=== PATIENT | female | born 1995 | race Caucasian/White ===

== ENCOUNTER 2016-08-02 15:21 | Emergency (ER) | payer OTHER, MEDICAID ==
[2016-08-02 15:40] VITALS: BP 131/73
--- NOTE | 2016-08-02 16:01 | UC ---
Knee Pain HPI - HPI Summary HPI Summary: RIGHT KNEE AND RIGHT MID THIGH PAIN X 1 DAY , NO KNOWN INJURY , + TIGHTNESS INCREASE PAIN WITH WALKING , BETTER WITH REST. - History of Current Complaint Chief Complaint: UCLowerExtremity Stated Complaint: RIGHT KNEE PAIN Time Seen by Provider: 08/02/16 15:41 Hx Obtained From: Patient Hx Last Menstrual Period: prior to childbirth. Nexplanon placed last week. ?: No Onset/Duration: Gradual Onset, Lasting Days - 1, Still Present Severity Initially: Mild Severity Currently: Mild Character: Aching Aggravating Factor(s): Movement, Weight Bearing Alleviating Factor(s): Rest Associated Signs And Symptoms: Negative: Swelling, Redness, Bruising, Fever, Weakness, Numbness, Tingling Able to Bear Weight: Yes - Allergies/Home Medications Allergies/Adverse Reactions: Allergies Allergy/AdvReac Type Severity Reaction Status Date / Time No Known Allergies Allergy Verified 08/02/16 15:34 Home Medications: Home Medications Etonogestrel IMPLANT(NF) [Implanon (NF)] 68 mg IMPLANT ONCE 08/02/16 [History Confirmed 08/02/16] PMH/Surg Hx/FS Hx/Imm Hx Endocrine History Of: Denies: Diabetes, Thyroid Disease, Hyperthyroidism, Hypothyroidism, Dyslipidemia Cardiovascular History Of: Denies: Cardiac Disorders, Hypertension, Pacemaker/ICD, Myocardial Infarction , Congestive Heart Failure, Atrial Fibrillation, Deep Vein Thrombosis, Bleeding Disorders Respiratory History Of: Denies: COPD, Asthma, Bronchitis, Pneumonia, Pulmonary Embolism GI/ History Of: Denies: Gastroesophageal Reflux, Ulcer, Gastrointestinal Bleed, Gall Bladder Disease, Kidney Stones, Diverticulitis, Renal Disease, Urosepsis Neurological History Of: Denies: TIA, CVA, Dementia, Seizures, Migraine Psychological History Of: Denies: Anxiety, Depression, Bipolar Disorder, Schizophrenia, Post Traumatic Stress Disorder Cancer History Of: Denies: Lung Cancer, Colorectal Cancer, Breast Cancer, Prostate Cancer, Cervical Cancer Other History Of: Negative For: HIV, Hepatitis B, Hepatitis C, Anticoagulant Therapy - Surgical History Surgical History: Yes Surgery Procedure, Year, and Place: tongue tied / released as infant, T & A, tubes in ears. - Family History Known Family History: Positive: None Negative: Diabetes - Social History Alcohol Use: None Substance Use Type: None Smoking Status (MU): Never Smoked Tobacco Have You Smoked in the Last Year: No Review of Systems Constitutional: Negative Skin: Negative Eyes: Negative ENT: Negative Respiratory: Negative Cardiovascular: Negative All Other Systems Reviewed And Are Negative: Yes Physical Exam Triage Information Reviewed: Yes Appearance: Well-Appearing, No Pain Distress, Obese Vital Signs: Initial Vital Signs Temp 99 F 08/02/16 15:35 Pulse 94 08/02/16 15:35 Resp 16 08/02/16 15:35 BP 131/73 08/02/16 15:35 Pulse Ox 99 08/02/16 15:35 Vital Signs Reviewed: Yes Eyes: Positive: Conjunctiva Clear ENT: Positive: Normal ENT inspection, Hearing grossly normal, Pharynx normal Neck exam: Normal Neck: Positive: Supple, Nontender, No Lymphadenopathy Respiratory Exam: Normal Respiratory: Positive: Chest non-tender, Lungs clear, Normal breath sounds Cardiovascular: Positive: RRR, No Murmur, Pulses Normal Abdominal Exam: Normal Abdomen Description: Positive: Nontender, Soft Musculoskeletal Exam: Normal Musculoskeletal: Positive: Strength Intact, ROM Intact, Other: - RIGHT KNEE: NO SWELLING , NO TENDERNESS, GOOD ROM RIGHT LOWER LEG: NO CALF TENDERNESS, NO ERYTHEM RIGHT THIGH: NO TENDERENSS, NO SWELLING Skin Exam: Normal Knee Pain Course/Dx - Differential Dx/Diagnosis Provider Diagnoses: RIGHT KNEE PAIN Discharge - Discharge Plan Condition: Stable Disposition: HOME Patient Education Materials: Knee Pain (ED) Referrals: KEVIN Mendoza [Primary Care Provider] - If Needed Additional Instructions: LEFT KNEE / LEG STRAIN CONT. WITH REST, ICE, TYLENOL NEEDED FOR PAIN FOLLOW UP IN 5 DAYS IF NOT BETTER, SOONER IF GETTING WORSE
== END 2016-08-02 15:53 | disposition home or self-care (01) ==
LOC: UCCORT 15:21
DX: M25.561 Pain in right knee (principal); E66.9 Obesity, unspecified
CPT/HCPCS: 99211; G0463

== ENCOUNTER 2016-08-19 18:23 | Emergency (ER) | payer OTHER, MEDICAID ==
[2016-08-19 20:29] VITALS: BP 122/77
--- NOTE | 2016-08-19 20:43 | UC ---
Back Pain HPI - HPI Summary HPI Summary: com plaint of lower bcak pain for the last 3 days only painful when she is sitting down or when she is getting out of bed non radiating pain hasn't taken any medication for pain denies fever denies incontinence denies dysuria ,increased frequency or urgency currently having menses with some cramping when she moves her left arm her muscle is sore - History of Current Complaint Chief Complaint: UCBackPain Stated Complaint: BACK PAIN Time Seen by Provider: 08/19/16 20:36 Hx Last Menstrual Period: 08/08/16 Onset/Duration: Gradual Onset, Lasting Days, Still Present Timing: Intermittent, Lasting Minutes Severity Initially: Mild Severity Currently: Mild Back Pain: Is Diffuse Character: Aching Aggravating: Movement Alleviating: Position - Allergies/Home Medications Allergies/Adverse Reactions: Allergies Allergy/AdvReac Type Severity Reaction Status Date / Time No Known Allergies Allergy Verified 08/19/16 20:23 Home Medications: Home Medications Ibuprofen [Midol] 400 mg PO PRN 08/19/16 [History] PMH/Surg Hx/FS Hx/Imm Hx Previously Healthy: Yes Endocrine History Of: Denies: Diabetes, Thyroid Disease, Hyperthyroidism, Hypothyroidism, Dyslipidemia Cardiovascular History Of: Denies: Cardiac Disorders, Hypertension, Pacemaker/ICD, Myocardial Infarction , Congestive Heart Failure, Atrial Fibrillation, Deep Vein Thrombosis, Bleeding Disorders Respiratory History Of: Denies: COPD, Asthma, Bronchitis, Pneumonia, Pulmonary Embolism GI/ History Of: Denies: Gastroesophageal Reflux, Ulcer, Gastrointestinal Bleed, Gall Bladder Disease, Kidney Stones, Diverticulitis, Renal Disease, Urosepsis Neurological History Of: Denies: TIA, CVA, Dementia, Seizures, Migraine Psychological History Of: Denies: Anxiety, Depression, Bipolar Disorder, Schizophrenia, Post Traumatic Stress Disorder Cancer History Of: Denies: Lung Cancer, Colorectal Cancer, Breast Cancer, Prostate Cancer, Cervical Cancer Other History Of: Negative For: HIV, Hepatitis B, Hepatitis C, Anticoagulant Therapy - Surgical History Surgical History: Yes Surgery Procedure, Year, and Place: tongue tied / released as infant, T & A, tubes in ears. - Family History Known Family History: Positive: None Negative: Cardiac Disease, Hypertension, Diabetes - Social History Lives: With Family Alcohol Use: None Substance Use Type: None Smoking Status (MU): Never Smoked Tobacco Have You Smoked in the Last Year: No Review of Systems Constitutional: Negative Skin: Negative Eyes: Negative ENT: Negative Respiratory: Negative Cardiovascular: Negative Gastrointestinal: Negative Genitourinary: Negative Motor: Negative Neurovascular: Negative Musculoskeletal: Other: - lower bcak pain left arm pain Neurological: Negative Psychological: Negative All Other Systems Reviewed And Are Negative: Yes Physical Exam Triage Information Reviewed: Yes Appearance: No Pain Distress, Well-Nourished, Obese Vital Signs: Initial Vital Signs Temp 98 F 08/19/16 20:24 Pulse 69 08/19/16 20:24 Resp 18 08/19/16 20:24 BP 122/77 08/19/16 20:24 Pulse Ox 99 08/19/16 20:24 Vital Signs Reviewed: Yes Eyes: Positive: Conjunctiva Clear ENT: Positive: Normal ENT inspection Neck: Positive: No Lymphadenopathy Respiratory: Positive: Lungs clear, Normal breath sounds, No respiratory distress Cardiovascular: Positive: RRR, No Murmur, Pulses Normal Abdomen Description: Positive: Nontender, Soft Bowel Sounds: Positive: Present Musculoskeletal: Positive: Other: - spine non- tender to percussion paraspinal lumbar tenderness left side Neurological: Positive: Alert, Other: - patellar reflexes intact negative SLR Psychological Exam: Normal Skin Exam: Normal Back Pain Course/Dx - Course Course Of Treatment: exam completed. no red flags for imaging. will treat with muscle relaxer NSAIDS and PT - Differential Dx/Diagnosis Differential Diagnosis/HQI/PQRI: Herniated Disc, Strain, Sprain Provider Diagnoses: lower back pain Discharge - Discharge Plan Condition: Stable Disposition: HOME Prescriptions: Cyclobenzaprine TAB* [Flexeril TAB*] 10 mg PO BEDTIME #10 tab Ibuprofen TAB* [Motrin TAB* 800 MG] 800 mg PO Q8H #30 tab Patient Education Materials: Low Back Strain (ED) Referrals: KEVIN Mendoza [Primary Care Provider] - Additional Instructions: Take flexeril as directed. Do not drink, drive or operate heavy machinery while on flexeril. Take acetaminophen or ibuprofen for fever or pain. Please call physical therapist for further evaluation and treatment of your lower back pain. Increase fluids and rest. Please review your discharge instructions. If your symptoms do not improve please call your primary care provider or return to urgent care.
[2016-08-19] MEDS ORDERED: Cyclobenzaprine TAB* 10 MG PO ONE (20:50)
== END 2016-08-19 21:18 | disposition home or self-care (01) ==
LOC: UCCORT 18:23
DX: M54.5 Low back pain (principal); M79.602 Pain in left arm; E66.9 Obesity, unspecified
CPT/HCPCS: 99212; A9270-GY; G0463

== ENCOUNTER 2016-09-01 10:41 | Emergency (ER) | payer MEDICAID, OTHER ==
[2016-09-01 11:41] VITALS: BP 128/66
[2016-09-01] MEDS ORDERED: Ibuprofen TAB* 600 MG PO ONE (11:59)
--- NOTE | 2016-09-01 12:01 | UC ---
Knee Pain HPI - HPI Summary HPI Summary: 21 yo female with left knee pain which started about 4 AM she thinks this is due to twisting knee 2 days ago no locking or buckling - History of Current Complaint Chief Complaint: UCLowerExtremity Stated Complaint: LEFT KNEE PAIN Time Seen by Provider: 09/01/16 11:48 Hx Obtained From: Patient Hx Last Menstrual Period: 08/10/16 Onset/Duration: Gradual Onset, Lasting Hours Severity Initially: Mild Severity Currently: Moderate Location Of Injury: left knee Pain Intensity: 6 Character: Dull, Aching Aggravating Factor(s): Weight Bearing Alleviating Factor(s): Rest Associated Signs And Symptoms: Positive: Negative Able to Bear Weight: Yes - Allergies/Home Medications Allergies/Adverse Reactions: Allergies Allergy/AdvReac Type Severity Reaction Status Date / Time No Known Allergies Allergy Verified 09/01/16 11:36 Home Medications: Home Medications Nexplanon (Etonogestrol) Implant 68 mg .ROUTE ONCE 09/01/16 [History] PMH/Surg Hx/FS Hx/Imm Hx Previously Healthy: Yes Endocrine History Of: Denies: Diabetes, Thyroid Disease, Hyperthyroidism, Hypothyroidism, Dyslipidemia Cardiovascular History Of: Denies: Cardiac Disorders, Hypertension, Pacemaker/ICD, Myocardial Infarction , Congestive Heart Failure, Atrial Fibrillation, Deep Vein Thrombosis, Bleeding Disorders Respiratory History Of: Denies: COPD, Asthma, Bronchitis, Pneumonia, Pulmonary Embolism GI/ History Of: Denies: Gastroesophageal Reflux, Ulcer, Gastrointestinal Bleed, Gall Bladder Disease, Kidney Stones, Diverticulitis, Renal Disease, Urosepsis Neurological History Of: Denies: TIA, CVA, Dementia, Seizures, Migraine Psychological History Of: Denies: Anxiety, Depression, Bipolar Disorder, Schizophrenia, Post Traumatic Stress Disorder Cancer History Of: Denies: Lung Cancer, Colorectal Cancer, Breast Cancer, Prostate Cancer, Cervical Cancer Other History Of: Negative For: HIV, Hepatitis B, Hepatitis C, Anticoagulant Therapy - Surgical History Surgical History: Yes Surgery Procedure, Year, and Place: tongue tied / released as infant, T & A, tubes in ears. - Family History Known Family History: Positive: Hypertension Negative: Cardiac Disease, Diabetes - Social History Alcohol Use: Rare Substance Use Type: None Smoking Status (MU): Never Smoked Tobacco Have You Smoked in the Last Year: No - Immunization History Most Recent Influenza Vaccination: Not the 2016/2016 Season Review of Systems Constitutional: Negative Skin: Negative Eyes: Negative ENT: Negative Respiratory: Negative Cardiovascular: Negative Gastrointestinal: Negative Genitourinary: Negative Motor: Negative Neurovascular: Negative Musculoskeletal: Arthralgia Neurological: Negative Psychological: Negative All Other Systems Reviewed And Are Negative: Yes Physical Exam Triage Information Reviewed: Yes Appearance: Well-Appearing, No Pain Distress, Well-Nourished Vital Signs: Initial Vital Signs Temp 98.6 F 09/01/16 11:33 Pulse 84 09/01/16 11:33 Resp 16 09/01/16 11:33 BP 128/66 09/01/16 11:33 Pulse Ox 99 09/01/16 11:33 Vital Signs Reviewed: Yes Eyes: Positive: Conjunctiva Clear ENT: Positive: Hearing grossly normal. Negative: Nasal congestion, Nasal drainage, Trismus, Muffled/hoarse voice Neck: Positive: Supple, Nontender, No Lymphadenopathy Respiratory: Positive: Lungs clear, Normal breath sounds, No respiratory distress Cardiovascular: Positive: RRR, No Murmur, Pulses Normal Abdomen Description: Positive: No Organomegaly. Negative: CVA Tenderness (R), CVA Tenderness (L), Distended, Guarding, Hernia @, Hepatomegaly, McBurney's Point Tenderness, Peritoneal Signs, Pulsatile Mass, Splenomegaly Musculoskeletal: Positive: ROM Intact, No Edema Neurological: Positive: Alert Psychological Exam: Normal Skin Exam: Normal Knee Pain Course/Dx - Differential Dx/Diagnosis Provider Diagnoses: left knee pain (? sprain vs patellar femoral syndrome) Discharge - Discharge Plan Condition: Stable Disposition: HOME Prescriptions: Ibuprofen TAB* [Motrin TAB*] 600 mg PO QID #40 tab Patient Education Materials: Knee Sprain (ED) Referrals: KEVIN Isidro [Primary Care Provider] - 1 Week Additional Instructions: rest ice
== END 2016-09-01 12:11 | disposition home or self-care (01) ==
LOC: UCCORT 10:41
DX: M25.562 Pain in left knee (principal)
CPT/HCPCS: 99213; A9270-GY; G0463

== ENCOUNTER 2017-04-12 20:31 | Emergency (ER) | payer OTHER ==
[2017-04-12 21:14] VITALS: BP 126/67
[2017-04-12] MEDS ORDERED: Famotidine TAB* 20 MG PO ONE (22:06)
--- NOTE | 2017-04-12 22:14 | UC ---
Abdominal Pain Female HPI - HPI Summary HPI Summary: 21 yo female with one week hx of intermittent abd pain epigastric dull and non radiating goes away immediately with food some nausea no vomiting no f/c no diarrhea no UTI symptoms hx c-s - History of Current Complaint Chief Complaint: UCAbdominalPain Stated Complaint: STOMACH CRAMPING Time Seen by Provider: 04/12/17 21:47 Hx Obtained From: Patient Hx Last Menstrual Period: 03/09/17 Onset/Duration: Gradual Onset, Lasting Days Timing: Intermittent Episodes Lasting: - variable Severity Initially: Mild Severity Currently: Mild Pain Intensity: 3 Pain Scale Used: 0-10 Numeric Location: Epigastric Radiates: No Character: Dull Aggravating Factor(s): Nothing Alleviating Factor(s): Other: - food Associated Signs and Symptoms: Positive: Nausea Allergies/Adverse Reactions: Allergies Allergy/AdvReac Type Severity Reaction Status Date / Time No Known Allergies Allergy Verified 04/12/17 21:14 Home Medications: Home Medications Norethindrone Acet & Eth Estra [Loestrin 1.5/30-21 1.5-30 mg-Mcg] 1 tab PO DAILY 04/12/17 [History Confirmed 04/12/17] PMH/Surg Hx/FS Hx/Imm Hx Previously Healthy: Yes Other History Of: Negative For: HIV, Hepatitis B, Hepatitis C, Anticoagulant Therapy - Surgical History Surgical History: Yes Surgery Procedure, Year, and Place: tongue tied / released as infant, T & A, tubes in ears. - Family History Known Family History: Positive: Hypertension Negative: Cardiac Disease, Diabetes - Social History Alcohol Use: Rare Substance Use Type: None Smoking Status (MU): Never Smoked Tobacco Have You Smoked in the Last Year: No - Immunization History Most Recent Influenza Vaccination: Not the Season Review of Systems Constitutional: Negative Skin: Negative Eyes: Negative ENT: Negative Respiratory: Negative Cardiovascular: Negative Gastrointestinal: Abdominal Pain, Nausea Genitourinary: Negative Motor: Negative Neurovascular: Negative Musculoskeletal: Negative Neurological: Negative Psychological: Negative Is Patient Immunocompromised?: No All Other Systems Reviewed And Are Negative: Yes Physical Exam Triage Information Reviewed: Yes Appearance: Well-Appearing, No Pain Distress, Well-Nourished Vital Signs: Initial Vital Signs Temp 98.8 F 04/12/17 21:09 Pulse 85 04/12/17 21:09 Resp 16 04/12/17 21:09 BP 126/67 04/12/17 21:09 Pulse Ox 98 04/12/17 21:09 Vital Signs Reviewed: Yes Eyes: Positive: Conjunctiva Clear ENT: Positive: Normal ENT inspection, Pharynx normal, Nasal drainage, TMs normal. Negative: Nasal congestion, Tonsillar exudate, Trismus, Muffled/hoarse voice Neck: Positive: Supple, Nontender, No Lymphadenopathy Respiratory: Positive: Lungs clear, Normal breath sounds, No respiratory distress, No accessory muscle use Cardiovascular: Positive: RRR, No Murmur, Pulses Normal Abdomen Description: Positive: Soft. Negative: Nontender - mid epigastric tenderness Bowel Sounds: Positive: Present Musculoskeletal: Positive: ROM Intact, No Edema Neurological: Positive: Alert Psychological Exam: Normal Skin Exam: Normal Abd Pain Female Course/Dx - Differential Dx/Diagnosis Differential Diagnosis: Gall Bladder Disease, Irritable Bowel Syndrome, Other - PUD Provider Diagnoses: epigastric abd pain of uncertain cause Discharge - Discharge Plan Condition: Stable Disposition: HOME Prescriptions: Famotidine TAB* [Pepcid 20 MG TAB*] 20 mg PO DAILY #14 tab Patient Education Materials: Acute Abdominal Pain (ED) Referrals: KEVIN Isidro [Primary Care Provider] - 4 Days Additional Instructions: possible ulcer try 6 small meals a day take pepcid as directed you may want to take mylanta : 2 tablespoons every 2 hours while awake for 2-3 days I suggest you recheck with your provider later this week for further evaluation
== END 2017-04-12 22:20 | disposition home or self-care (01) ==
LOC: UCCORT 20:31
DX: R10.13 Epigastric pain (principal); R11.0 Nausea; Z32.02 Encounter for pregnancy test, result negative
CPT/HCPCS: 81003; 84702; 99212; A9270-GY; G0463

== ENCOUNTER 2017-05-25 19:51 | Emergency (ER) | payer OTHER ==
[2017-05-25 20:46] VITALS: BP 136/65
--- NOTE | 2017-06-02 09:48 | UC ---
Throat Pain/Nasal Erwin HPI - History of Current Complaint Chief Complaint: UCGeneralIllness Stated Complaint: COUGH/SORE THROAT Time Seen by Provider: 05/25/17 21:04 Hx Obtained From: Patient Hx Last Menstrual Period: 04/14/17 Onset/Duration: Sudden Onset Severity: Moderate Pain Intensity: 8 Pain Scale Used: 0-10 Numeric Cough: Nonproductive Associated Signs & Symptoms: Positive: Negative - Allergies/Home Medications Allergies/Adverse Reactions: Allergies Allergy/AdvReac Type Severity Reaction Status Date / Time Adhesive Tape Allergy Rash Verified 05/25/17 20:46 PMH/Surg Hx/FS Hx/Imm Hx Previously Healthy: Yes Other History Of: Negative For: HIV, Hepatitis B, Hepatitis C, Anticoagulant Therapy - Surgical History Surgical History: Yes Surgery Procedure, Year, and Place: tongue tied / released as infant, T & A, tubes in ears. - Family History Known Family History: Positive: Hypertension Negative: Cardiac Disease, Diabetes - Social History Alcohol Use: Rare Substance Use Type: None Smoking Status (MU): Never Smoked Tobacco Have You Smoked in the Last Year: No - Immunization History Most Recent Influenza Vaccination: Not the Season Review of Systems Constitutional: Negative Skin: Negative Eyes: Negative ENT: Nasal Discharge, Sinus Congestion, Sinus Pain/Tenderness Respiratory: Negative Cardiovascular: Negative Gastrointestinal: Negative Genitourinary: Negative Motor: Negative Neurovascular: Negative Musculoskeletal: Negative Neurological: Negative Psychological: Negative All Other Systems Reviewed And Are Negative: Yes Physical Exam Triage Information Reviewed: Yes Vital Signs: Initial Vital Signs Temp 37.5 C 05/25/17 20:38 Pulse 114 05/25/17 20:38 Resp 28 05/25/17 20:38 BP 136/65 05/25/17 20:38 Pulse Ox 100 05/25/17 20:38 Vital Signs Reviewed: Yes Eye Exam: Normal ENT: Positive: Pharyngeal erythema, Nasal congestion, Nasal drainage, Sinus tenderness Dental Exam: Normal Neck exam: Normal Neck: Positive: 1 Respiratory Exam: Normal Cardiovascular Exam: Normal Abdominal Exam: Normal Musculoskeletal Exam: Normal Neurological Exam: Normal Psychological Exam: Normal Skin Exam: Normal Throat Pain/Nasal Course/Dx - Differential Dx/Diagnosis Provider Diagnoses: sinusitis Discharge - Discharge Plan Condition: Stable Disposition: HOME Prescriptions: Amoxicillin/Clavulanate TAB* [Augmentin TAB 875*] 875 mg PO BID #20 tab Fluticasone NASAL * [Flonase *] 2 spray BOTH NARES DAILY #1 box LoraTADine TAB(NF) [Claritin 10 MG TAB(NF)] 10 mg PO DAILY #30 tab Patient Education Materials: Sinusitis (ED) Referrals: KEVIN Isidro [Primary Care Provider] -
== END 2017-05-25 21:31 | disposition home or self-care (01) ==
LOC: UCCORT 19:51
DX: J32.9 Chronic sinusitis, unspecified (principal); Z32.02 Encounter for pregnancy test, result negative
CPT/HCPCS: 84702; 87651; 99212; G0463

== ENCOUNTER 2020-09-05 06:14 | Inpatient (IN) ==
[~2020-09-05 06:14] MED LIST: Buffered Lidocaine 1% SYRIN 1 ml INTRADERM ONE; Lactated Ringers 1000 ml BAG 1,000 ML IV SCH; Sodium Citrate/Citric Acid LIQ 15 ML UDC PO ONE
[2020-09-05 06:49] LABS: Platelet Count 196 10^3/ul (150-450)
[2020-09-05 07:00] LABS: Fibrinogen 619.9 mg/dL (110.8-404.3)
[2020-09-05] MEDS ORDERED: ceFOXitin 2 GM PREMIX 50 ML IVPB ONE (07:00)
[2020-09-05 07:12] LABS: Schistocytes ABSENT
[2020-09-05] MEDS ORDERED: Morphine PF AMP (0.5MG/ML) 5 MG/10 ML AMP ONE (07:12)
[2020-09-05] MEDS ORDERED: Phenylephrine 40 mcg/mL 10mL (400mcg) SYRINGE ONE (07:13)
[2020-09-05 07:37] LABS: Urine Benzodiazepine Screen None Detected (None Detect); Urine Opiates Screen None Detected (None Detect)
[2020-09-05] MEDS ORDERED: Sodium Chloride 0.9% 10 ML ONE (08:23)
[2020-09-05] MEDS ORDERED: Ondansetron 4 mg VIAL 2 MG/ML 2 ml VIAL ONE (08:40)
[2020-09-05] MEDS ORDERED: Oxytocin 10 UNITS/ML 1 ML VIAL ONE ×2 (08:41→09:05)
[2020-09-05] MEDS ORDERED: Naloxone 0.4 mg VIAL 0.4 mg/ml 1 ml VIAL IV PRN ×2 (08:58→08:59)
[2020-09-05] MEDS ORDERED: Ondansetron 4 mg VIAL 2 MG/ML 2 ml VIAL IV PRN (08:59)
[2020-09-05] MEDS ORDERED: oxyCODONE/Acetamin 5/325 mg TAB PO PRN ×2 (08:59)
[2020-09-05] MEDS: diPHENhydraMINE 25 mg TAB PO PRN ×3 (10:07→22:17)
[2020-09-05] MEDS ORDERED: Dibucaine 1% OINT 28.35 GM TUBE PR PRN (10:16)
[2020-09-05] MEDS ORDERED: Glycerin ADULT 2.4 gm SUPP PR PRN (10:16)
[2020-09-05] MEDS ORDERED: Witch Hazel PAD JAR TOPICAL PRN (10:16)
[2020-09-05] MEDS ORDERED: Lactated Ringers 1000 ml BAG 1,000 ML IV SCH (11:00)
[2020-09-05 12:08] LABS: Urine Appearance Cloudy; Urine Bilirubin Negative (Negative); Urine Blood 1+ (Negative); Urine Color Yellow; Urine Glucose 1+(50 mg/dL) (Negative); Urine Ketones Negative (Negative); Urine Nitrite Negative (Negative); Urine Protein 3+(>=500 mg/dL) (Negative); Urine Urobilinogen Negative (Negative)
[2020-09-05 12:17] LABS: Urine Bacteria Absent (Absent); Urine Red Blood Cell 3+(>10/hpf) (Absent); Urine Squamous Epithelial Cell Present (Absent); Urine White Blood Cell Trace(0-5/hpf) (Absent)
[2020-09-06 09:39] LABS: ABS Monocytes 0.4 10^3/ul (0-0.8); ABS Neutrophils 7.4 10^3/ul (1.5-7.7); Eosinophil % 0.4 %; Hematocrit 30 % (35-47); Hemoglobin 10.5 g/dL (12.0-16.0); Mean Corpuscular HGB Conc 35 g/dL (31-36); Mean Corpuscular Hemoglobin 29 pg (27-31); Mean Corpuscular Volume 83 fL (80-97); Mean Platelet Volume 7.4 fL (7.4-10.4); Platelet Count 172 10^3/uL (150-450); Red Blood Count 3.63 10^6 /uL (3.70-4.87); Red Cell Distribution Width 14 % (10-15); White Blood Count 8.8 10^3/uL (3.5-10.8)
[2020-09-06] MEDS: diPHENhydraMINE 25 mg TAB PO PRN (15:27)
[2020-09-07] MEDS ORDERED: Measles, Mumps,Rubella VACC 0.5 ML/VIAL SUBCUT ONE (11:00)
[2020-09-08] MEDS ORDERED: Scopolamine PATCH Remove NOTE PATCH OFF SCH (08:00)
[2020-09-08 08:15] VITALS: BP 112/66
== END 2020-09-08 13:12 | disposition home or self-care (01) | DRG 540 ==
LOC: MCHOB 06:14
PROVIDERS: ADMIT Obstetrics & Gynecology; ATTEND Obstetrics & Gynecology